=== PATIENT | female | born 1965 | race Caucasian/White ===

== ENCOUNTER 2017-02-01 10:25 | Emergency (ER) | payer BC, OTHER ==
[2017-02-01 10:44] VITALS: TEMP 98.2
[2017-02-01] MEDS ORDERED: RX INFO: IV CONTRAST WAS GIVEN 1 EACH MISC MISCELLANE PRN (11:09)
[2017-02-01 11:31] VITALS: RESP 18
[2017-02-01 11:41] LABS: Basophils % (A) 0 %; CH 29.4; CHCM 32.1; Eosinophils # (A) 0.2 k/uL (0-0.7); Eosinophils % (A) 3 %; HCT 38.5 % (34.0-46.0); HDW 2.37; HGB 12.5 gm/dL (11.4-16.0); Luc # (Auto) 0.11; Luc % (Auto) 2; Lymphocytes # (A) 2.3 k/uL (1.0-4.8); Lymphocytes % (A) 36 %; MCH 29.9 pg (25.0-35.0); MCHC 32.5 g/dL (31.0-37.0); MCV 91.9 fL (80.0-100.0); Mean Platelet Volume 7.4; Monocytes # (A) 0.3 k/uL (0-1.0); Monocytes % (A) 5 %; Neutrophils # (A) 3.4 k/uL (1.3-7.7); Neutrophils % (A) 53 %; RBC 4.19 m/uL (3.80-5.40); RDW 12.7 % (11.5-15.5); WBC 6.3 k/uL (3.8-10.6); WBC (Perox) 6.22
[2017-02-01 11:53] LABS: Anion Gap 11 mmol/L; Blood Urea Nitrogen 18 mg/dL (7-17); Calcium 9.4 mg/dL (8.4-10.2); Carbon Dioxide 26 mmol/L (22-30); Chloride 106 mmol/L (98-107); Glucose 93 mg/dL (74-99); Non-African American GFR(MDRD) >60 (>60 ml/min/1.73 sqM); Potassium 3.8 mmol/L (3.5-5.1); Sodium 143 mmol/L (137-145)
[2017-02-01 11:55] LABS: Partial Thromboplastin Time 22.5 sec (22.0-30.0)
--- NOTE | 2017-02-01 12:59 | CT ---
EXAMINATION TYPE: CT brain wo con DATE OF EXAM: 02/01/2017 12:53 PM COMPARISON: NONE HISTORY: Patient complains of new onset left side vision loss. CT DLP: 1066.[address] of the brain was performed. The ventricles, basal cisterns and sulci overlying the cerebral convexities demonstrate a normal appe arance. There is no evidence for intracranial hemorrhage or sulcal effacement. No mass effects are seen. Osseous calvarium is intact. If symptoms persist consider MRI as clinically warranted. IMPRESSION: 1. No acute intracranial process is seen at this time.
--- NOTE | 2017-02-01 13:01 | CT ---
EXAMINATION TYPE: CT orbits wo con DATE OF EXAM: 02/01/2017 12:55 PM COMPARISON: NONE HISTORY: Patient complains of new onset left side vision loss. CT DLP: 270.16 mGycm Automated exposure control for dose reduction was used. Unenhanced CT of the orbits was performed in the axial and coronal planes. FINDINGS: The globes are symmetric. No evidence for intra or extraconal mass. Optic nerves and extraocular musc ulature appear to be within normal limits. Both lenses appear to be symmetric and intact. No radiopaq ue foreign body identified. Mild ethmoid sinusitis. IMPRESSION: NO SIGNIFICANT ABNORMALITY APPRECIATED.
--- NOTE | 2017-02-01 13:03 | CT ---
EXAMINATION TYPE: CT angio head neck DATE OF EXAM: 02/01/2017 12:58 PM COMPARISON: NONE HISTORY: Patient complains of new onset left side vision loss. CT DLP: 376.9 mGycm CONTRAST: Performed with IV Contrast, patient injected with 65 mL of Omnipaque 350. Combination Contrast CTA cervical carotids and [place] of Javed CTA cervical carotids with 3-D recons truction Contrast CTA of the cervical carotids was performed 3-D reconstruction imaging obtained at a separate workstation. Right carotid system: Mild plaque is seen of the right common carotid artery. There is mild plaque a lso noted at the carotid bulb and proximal ICA. No significant diameter reduction. ECA is patent. Right vertebral artery appears unremarkable. Left carotid system: Mild plaque is seen of the left common carotid artery. There is mild plaque als o noted at the carotid bulb and proximal ICS. No significant diameter reduction. ECA is patent. Lef t vertebral artery appears unremarkable. IMPRESSION: 1. No significant diameter reduction to account for the patient's symptoms. CTA [place] of Javed with 3-D reconstruction Contrast CTA of the [place] of Javed was performed 3-D reconstruction imaging obtained at a separate workstation. Vertebrobasilar system as well as intracranial portions of the internal carotid arteries and their ma vanessa tributaries are patent. I do not see evidence for sizable aneurysm or vascular malformation. Pl ease note MRI provides greater sensitivity and specificity. Visualized brain appears grossly unremar kable. IMPRESSION: 1. No siginificant abnormality.
[2017-02-01] MEDS ORDERED: DEXAMETHASONE SOD PHOSPHATE 10 MG/ML 1 ML VIAL IV STA (13:28)
[2017-02-01] MEDS ORDERED: KETOROLAC 30 MG/ML 1 ML VIAL IVP STA (13:29)
[2017-02-01] MEDS ORDERED: METOCLOPRAMIDE 5 MG/ML 2 ML VIAL IVP STA (13:29)
--- NOTE | 2017-02-01 13:39 | ED ---
Eye Problem HPI - General Chief complaint: Eye Problems Stated complaint: VISUAL DISTURBANCE Time Seen by Provider: 02/01/17 11:00 Source: patient Mode of arrival: ambulatory Limitations: no limitations - History of Present Illness Initial comments: This 51-year-old white female presents complaining of some loss of vision from her left eye. It occurred at 10:10 AM. It was sudden in onset. She states that she could not see well. It look like a cracked windshield with left paraspinal outlining at and significant blurry and occasional double vision. She states that it was worse laterally. It is improved by the time she gets to the emergency department but still present. She denies any headache upon initial examination. On recheck she does complain of a slight headache. She denies any history of migraine headaches or any significant headache history. She denies any neck pain. She denies any possible chemical exposure to her eyes or head trauma. She denies any other neurologic complaints or modifying factors. There is no previous similar incidents. She denies any ophthalmologic problems previously. - Related Data Home Medications Medication Instructions Recorded Confirmed Minivelle 0.05 mg TRANSDERM SUWE 10/26/16 02/01/17 Naproxen Sodium [Aleve] 440 mg PO DAILY PRN 02/01/17 02/01/17 Allergies Allergy/AdvReac Type Severity Reaction Status Date / Time No Known Allergies Allergy Verified 02/01/17 11:29 Review of Systems ROS Statement: Those systems with pertinent positive or pertinent negative responses have been documented in the HPI. ROS Other: All systems not noted in ROS Statement are negative. Past Medical History Past Medical History: No Reported History, Musculoskeletal Disorder History of Any Multi-Drug Resistant Organisms: None Reported Past Surgical History: Back Surgery, Hysterectomy Additional Past Surgical History / Comment(s): Colonoscopy Past Anesthesia/Blood Transfusion Reactions: No Reported Reaction, Family History of Problems w/ Anesthesia Additional Past Anesthesia/Blood Transfusion Reaction / Comment(s): Mother N/V Past Psychological History: No Psychological Hx Reported Smoking Status: Never smoker Past Alcohol Use History: Occasional Past Drug Use History: None Reported - Past Family History Brother(s) Family Medical History: Cancer General Exam - General Exam Comments Initial Comments: GENERAL: The patient is well nourished and well hydrated. VITAL SIGNS: Heart rate, blood pressure, respiratory rate reviewed as recorded in nurse's notes. EYES: Pupils are round and reactive. Extraocular movements are intact. No conjunctival / lid redness or swelling. The patient cannot decipher fingers well upon examination. Funduscopic exam is negative as per my review but is somewhat limited. There is no periorbital swelling or evidence of trauma. ENT: No external evidence of injury, swelling, or ecchymosis. Airway is patent. Throat is clear. NECK: Nontender. No swelling or evidence of injury. No subcutaneous emphysema. Trachea is midline. No thyroid mass. HEART: Regular rate and rhythm. Good peripheral pulses. LUNGS/CHEST: Breath sounds clear and equal bilaterally. No rales, rhonchi, or wheezes. No ecchymosis, subcutaneous emphysema, or tenderness. ABDOMEN: Abdomen soft without tenderness. No palpable masses or organomegaly. No peritoneal signs. No abdominal wall swelling or ecchymosis. EXTREMITIES: No extremity tenderness. Normal muscle tone and function. No thoracolumbar tenderness. NEUROLOGIC: Sensation is grossly intact. Cranial nerve exam reveals face is symmetrical, tongue is midline, speech is clear. SKIN: No abrasions or ecchymosis is noted. No induration or masses noted. PSYCHIATRIC: Alert and oriented. Appropriate behavior and judgment. Limitations: no limitations Course Vital Signs 02/01/17 02/01/17 10:41 11:30 Temperature 98.2 F Pulse Rate 65 80 Respiratory 17 18 Rate Blood Pressure 157/94 157/87 O2 Sat by Pulse 98 99 Oximetry Medical Decision Making - Medical Decision Making The patient was seen and examined. All diagnostics were reviewed. An IV is started. The patient's labs are all essentially within normal limits. She had a computed tomography scan of the orbits, brain, and CT angiogram of the head and neck and this does not show any acute significant abnormalities. The patient, upon recheck, is now having a headache. Reglan, Toradol, Decadron are ordered. It is felt that this potentially could be related to an atypical migraine cephalgia. The case is discussed with Dr. Diggs and he would like us to send her over to his office from the emergency department so he can further evaluate her eyes. The patient is agreeable. Her blood pressure is slightly elevated and she is counseled regarding this. She leaves in no distress. She states that all of her ophthalmological symptoms have been resolved on recheck. - Lab Data Result diagrams: 02/01/17 11:21 03/27/17 11:21 Lab Results 02/01/17 02/01/17 02/01/17 Range/Units 11:21 11:21 11:21 WBC 6.3 (3.8-10.6) k/uL RBC 4.19 (3.80-5.40) m/uL Hgb 12.5 (11.4-16.0) gm/dL Hct 38.5 (34.0-46.0) % MCV 91.9 (80.0-100.0) fL MCH 29.9 (25.0-35.0) pg MCHC 32.5 (31.0-37.0) g/dL RDW 12.7 (11.5-15.5) % Plt Count 254 (150-450) k/uL Neutrophils % 53 % Lymphocytes % 36 % Monocytes % 5 % Eosinophils % 3 % Basophils % 0 % Neutrophils # 3.4 (1.3-7.7) k/uL Lymphocytes # 2.3 (1.0-4.8) k/uL Monocytes # 0.3 (0-1.0) k/uL Eosinophils # 0.2 (0-0.7) k/uL Basophils # 0.0 (0-0.2) k/uL PT 10.0 (9.0-12.0) sec INR 1.0 (<1.1) APTT 22.5 (22.0-30.0) sec Sodium 143 (137-145) mmol/L Potassium 3.8 (3.5-5.1) mmol/L Chloride 106 (98-107) mmol/L Carbon Dioxide 26 (22-30) mmol/L Anion Gap 11 mmol/L BUN 18 H (7-17) mg/dL Creatinine 0.58 (0.52-1.04) mg/dL Est GFR (MDRD) Af Amer >60 (>60 ml/min/1.73 sqM) Est GFR (MDRD) Non-Af >60 (>60 ml/min/1.73 sqM) Glucose 93 (74-99) mg/dL Calcium 9.4 (8.4-10.2) mg/dL Disposition Clinical Impression: Atypical migraine, Visual loss, Hypertension Disposition: HOME SELF-CARE Condition: Good Instructions: Migraine Headache (ED), Hypertension (ED) Additional Instructions: Please go directly to Dr. Diggs's office from the emergency department. It is felt as though her symptoms may be related to an atypical migraine headache. Referrals: Nella Castaneda DO [Primary Care Provider] - 1-2 days Kamala Diggs MD [STAFF PHYSICIAN] - 02/01/17 Time of Disposition: 13:38
[2017-02-01 14:06] VITALS: BP 123/73; PULSE 82
== END 2017-02-01 14:06 | disposition home or self-care (01) ==
LOC: EC 10:25
DX: H54.7 Unspecified visual loss (principal); G43.909 Migraine, unspecified, not intractable, without status migrainosus; I10 Essential (primary) hypertension; Z79.899 Other long term (current) drug therapy
CPT/HCPCS: 99284; 96374; 96375 ×2; 36415; 80048; 85025; 85610; 85730; 70496; 70450; 70480; 70498; J1100; J2765; Q9967; J1885

== ENCOUNTER 2018-03-11 16:05 | Emergency (ER) | payer BC, OTHER ==
[2018-03-11 16:20] VITALS: BP 125/95; PULSE 105; RESP 18; TEMP 98
--- NOTE | 2018-03-11 16:57 | XR ---
EXAMINATION TYPE: XR knee complete RT DATE OF EXAM: 03/11/2018 CLINICAL HISTORY: Posterior and lateral pain after hyperextension injury earlier today. TECHNIQUE: Three views of the right knee are obtained. COMPARISON: None. FINDINGS: There is no acute fracture/dislocation evident in right knee. Meniscal calcification is se en laterally. There is mild to moderate medial and lateral tibiofemoral compartment spurring. There a re small ossific fragments medially and laterally from the distal femur. There are fixating nan l ateral distal femur and medial proximal tibia through healed fractures. Patellofemoral space is maint ained. The overlying soft tissue appears unremarkable. IMPRESSION: There is no acute fracture or dislocation in the right knee.
--- NOTE | 2018-03-11 17:47 | ED ---
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 Patient states that she was using a firehose when she stepped into a wet surface in her foot slipped. She states she felt like she hyperextended her knee. Patient states she had surgery on that knee about 25 years ago due to ligament injury. Patient denies any pain in her calf, ankle, or foot. Patient denies any pain in the femur or hip. No pain in the back. Patient denies falling or hitting her head. Patient received 2 mg of morphine by ambulance. Patient denies any other complaints at this time including shortness of breath, chest pain, abdominal pain, nausea or vomiting, headache, visual changes. - Related Data Home Medications Medication Instructions Recorded Confirmed Minivelle 0.05 mg TRANSDERM SUWE 10/26/16 03/11/18 Naproxen Sodium [Aleve] 440 mg PO DAILY PRN 02/01/17 03/11/18 Ergocalciferol (Vitamin D2) 50,000 unit PO WE 03/11/18 03/11/18 [Vitamin D2] Previous Rx's Medication Instructions Recorded Acetaminophen-Codeine 300-30mg 1 tab PO Q8H PRN #9 tablet 03/11/18 [Tylenol #3] Allergies Allergy/AdvReac Type Severity Reaction Status Date / Time No Known Allergies Allergy Verified 03/11/18 16:52 Review of Systems ROS Statement: Those systems with pertinent positive or pertinent negative responses have been documented in the HPI. ROS Other: All systems not noted in ROS Statement are negative. Past Medical History Past Medical History: No Reported History History of Any Multi-Drug Resistant Organisms: None Reported Past Surgical History: Back Surgery, Hysterectomy, Orthopedic Surgery Additional Past Surgical History / Comment(s): Colonoscopy, right knee Past Anesthesia/Blood Transfusion Reactions: No Reported Reaction, Family History of Problems w/ Anesthesia Additional Past Anesthesia/Blood Transfusion Reaction / Comment(s): Mother N/V Past Psychological History: No Psychological Hx Reported Smoking Status: Never smoker Past Alcohol Use History: Occasional Past Drug Use History: None Reported - Past Family History Brother(s) Family Medical History: Cancer General Exam Limitations: no limitations General appearance: alert, in no apparent distress Head exam: Present: atraumatic, normocephalic, normal inspection Eye exam: Present: normal appearance, PERRL, EOMI. Absent: scleral icterus, conjunctival injection, periorbital swelling ENT exam: Present: normal external ear exam Neck exam: Present: normal inspection, full ROM. Absent: tenderness, meningismus, lymphadenopathy Respiratory exam: Present: normal lung sounds bilaterally. Absent: respiratory distress, wheezes, rales, rhonchi, stridor Cardiovascular Exam: Present: regular rate, normal rhythm, normal heart sounds. Absent: systolic murmur, diastolic murmur, rubs, gallop, clicks Extremities exam: Present: tenderness (Tenderness to the posterior knee. Note tenderness in the femur, tib-fib, ankle, or foot.), normal capillary refill ( Refill less than 2 seconds in the right lower extremity. Pedal pulse 2+ in the right lower extremity.), other (Sensation intact in the right lower extremity. Patient has sensation of all digits in the right lower extremities.). Absent: full ROM (Patient refuses to try to bend the right knee. Patient can move the ankle, foot, and all digits of the toes.), joint swelling (No swelling or ecchymosis noted on exam), calf tenderness (tenderness. Negative Homans sign.) Course Vital Signs 03/11/18 16:14 Temperature 98 F Pulse Rate 105 H Respiratory 18 Rate Blood Pressure 125/95 O2 Sat by Pulse 97 Oximetry Medical Decision Making - Medical Decision Making 52-year-old female presents to the emergency department for a chief complaint of right knee pain 1 hour. Patient states her foot slipped on unstable ground and she felt that her knee hyperextended. Patient has a history of surgery on the knee 25 years ago for ligament injury. On exam, no swelling or ecchymosis noted. Patient has tenderness posterior to the knee. Patient refuses to bend the knee. No calf tenderness, negative Homans sign. No tenderness elsewhere in the leg. Patient has full range motion in the right foot and toes. Neurovascular intact in the right lower extremity. Patient likely has a ligament sprain. She will be given a knee immobilizer as well as crutches. She will follow up with orthopedics in one to 2 days. Orthopedics will determine her work status. She will return to the emergency Department if she has any worsening symptoms. Patient agrees with this plan. Disposition Clinical Impression: Knee injury Disposition: HOME SELF-CARE Condition: Good Instructions: Knee Pain (ED) Additional Instructions: Please take Motrin for pain. If pain is severe please take Tylenol 3. Follow up with orthopedics in one to 2 days. You may use crutches. Remember to rest, ice, and elevate the affected knee. Return to the emergency department if you have any worsening symptoms. Prescriptions: Acetaminophen-Codeine 300-30mg [Tylenol #3] 1 tab PO Q8H PRN #9 tablet PRN Reason: Pain Is patient prescribed a controlled substance at d/c from ED?: No Referrals: Nella Castaneda DO [Primary Care Provider] - 1-2 days Brian Duran MD [STAFF PHYSICIAN] - 1-2 days Time of Disposition: 17:39
[2018-03-11] MEDS ORDERED: KETOROLAC 30 MG/ML 1 ML VIAL IVP STA (17:54)
== END 2018-03-11 18:30 | disposition home or self-care (01) ==
LOC: EC 16:05
DX: S89.91XA Unspecified injury of right lower leg, initial encounter (principal); Z79.899 Other long term (current) drug therapy; Z98.890 Other specified postprocedural states; Z53.20 Procedure and treatment not carried out because of patient's decision for unspecified reasons; W01.0XXA Fall on same level from slipping, tripping and stumbling without subsequent striking against object, initial encounter; Y93.89 Activity, other specified; Y92.89 Other specified places as the place of occurrence of the external cause; Y99.0 Civilian activity done for income or pay
CPT/HCPCS: 73562; 99284; L1830; J1885

== ENCOUNTER → 2019-11-28 | Outpatient (CLI) | payer BC ==
--- NOTE | 2019-11-30 13:39 | MM ---
Reason for exam: screening (asymptomatic). Last mammogram was performed 1 year and 2 months ago. History: Patient is postmenopausal and is nulliparous. Took hormonal contraceptives for 23 years beginning at age 19. Took estrogen for 4 years 6 months. Took progesterone for 4 years 6 months. Physical Findings: A clinical breast exam by your physician is recommended on an annual basis and results should be correlated with mammographic findings. MG 3D Screening Mammo W/Cad Bilateral CC and MLO view(s) were taken. Prior study comparison: October 07, 2018, mammogram, performed at [facility]. August 15, 2017, mammogram, performed at [facility]. January 22, 2016, bilateral MG 3d screening mammo w/cad. October 28, 2011, bilateral digital screening mammo w/CAD. The breast tissue is heterogeneously dense. This may lower the sensitivity of mammography. There is no discrete abnormality. No significant changes when compared with prior studies. ASSESSMENT: Negative, BI-RAD 1 RECOMMENDATION: Routine screening mammogram of both breasts in 1 year.
== END | disposition home or self-care (01) ==
LOC: RADMAMWWP 07:46
PROVIDERS: ATTEND Family Medicine
DX: Z12.31 Encounter for screening mammogram for malignant neoplasm of breast (principal)
CPT/HCPCS: 77063; 77067

== ENCOUNTER → 2021-07-02 | Outpatient (CLI) | payer BC ==
--- NOTE | 2021-07-02 13:07 | MR ---
EXAMINATION TYPE: MR shoulder LT wo con DATE OF EXAM: 07/02/2021 11:50 AM COMPARISON: NONE HISTORY: Left shoulder pain TECHNIQUE: Multiplanar multispin echo imaging of the left shoulder was performed. FINDINGS: Rotator cuff : There is thickening and heterogeneity of the supraspinatus tendon with the intrasubsta nce tears noted. No evidence for full-thickness tear at this time. Chronic tendinopathy noted. Remain ing constituents of the rotator cuff are intact. Bursa: No bursal effusion or thickening is seen. Musculature: There is no muscular tear, contusion, or atrophy. Acromioclavicular joint : Subacromial spurring results in impingement. Moderate AC joint arthropathy. Osseous structures : There are no fractures or regions of abnormal bone marrow signal intensity. Long biceps tendon : The biceps tendon is normally situated within the bicipital groove. No complete or partial biceps tendon tear is present. Glenohumeral Joint fluid : There is no glenohumeral joint effusion. Cartilage and Bone : No focal hyaline cartilage defects are noted. No Hill-Sachs, reverse Hill-Sachs, or bony Bankart lesions are seen. Labrum : There are no SLAP or soft tissue Bankart lesions. No paralabral cysts are seen. OTHER FINDINGS : none IMPRESSION: 1. Chronic tendinopathy supraspinatus tendon with intrasubstance tears noted there is no evidence for full-thickness tear or partial tear. Subacromial impingement secondary to spurring.
== END | disposition home or self-care (01) ==
LOC: RADMRIMAIN 11:06
PROVIDERS: ATTEND Orthopaedic Surgery
DX: M75.112 Incomplete rotator cuff tear or rupture of left shoulder, not specified as traumatic (principal)

== ENCOUNTER → 2021-09-03 | Outpatient (CLI) | payer BC ==
[2021-09-03 14:27] LABS: Basophils % (A) 1 %; Eosinophils # (A) 0.1 k/uL (0-0.7); Eosinophils % (A) 2 %; HCT 41.1 % (34.0-46.0); HGB 12.9 gm/dL (11.4-16.0); Lymphocytes # (A) 2.4 k/uL (1.0-4.8); Lymphocytes % (A) 40 %; MCH 30.2 pg (25.0-35.0); MCHC 31.4 g/dL (31.0-37.0); MCV 96.2 fL (80.0-100.0); Mean Platelet Volume 7.8; Monocytes # (A) 0.3 k/uL (0-1.0); Monocytes % (A) 5 %; Neutrophils # (A) 3.2 k/uL (1.3-7.7); Neutrophils % (A) 51 %; Platelet Count 265 k/uL (150-450); RBC 4.27 m/uL (3.80-5.40); RDW 12.1 % (11.5-15.5); WBC 6.1 k/uL (3.8-10.6)
[2021-09-03 14:38] LABS: Potassium 4.8 mmol/L (3.5-5.1)
== END | disposition home or self-care (01) ==
LOC: LABPAT 12:53
PROVIDERS: ATTEND Orthopaedic Surgery
DX: Z01.818 Encounter for other preprocedural examination (principal); M75.42 Impingement syndrome of left shoulder
CPT/HCPCS: 36415; 80051; 85025; 93005

== ENCOUNTER 2021-09-18 07:39 | Day surgery (SDC) | payer BC ==
[2021-09-16 18:01] VITALS: BMI 25.8
--- NOTE | 2021-09-17 21:16 | HP ---
HISTORY AND PHYSICAL DATE OF SURGERY: 09/18/2021 Arlen Snowden is a 56-year-old patient seen with progressive left shoulder pain. We discussed options for treatment. She elected to proceed with left shoulder arthroscopy. Consent was obtained. PAST MEDICAL HISTORY: Noncontributory. PAST SURGICAL HISTORY: Right knee arthroscopy, spine surgery. DAILY MEDICATIONS: None. ALLERGIES: NONE. SOCIAL HISTORY: She denies tobacco use. PHYSICAL EVALUATION OF THE LEFT SHOULDER: Flexion is 150 degrees. Abduction is 130 degrees. External rotation is 40 degrees with some weakness. Tenderness along the anterolateral acromion and rotator cuff insertion site. Impingement is positive at 90 degrees. Cross-body adduction sign is positive. Drop-arm sign is positive. Distal neurovascular exam is intact. Radiographs of the left shoulder: Type 2 acromion, evidence for acromioclavicular joint osteoarthritis. MRI of left shoulder: Impingement, acromioclavicular joint osteoarthritis and partial rotator cuff tendon tear. IMPRESSION: 1. Left shoulder impingement with partial rotator cuff tear. 2. Left shoulder acromioclavicular joint osteoarthritis. PLAN: Left shoulder arthroscopy with subacromial decompression, possible arthroscopic rotator cuff repair, Marii procedure and debridement. MMODL / IJN: [id number] /
[~2021-09-18 07:39] MED LIST: HYDROmorphone 0.5 MG/0.5 ML SYRINGE IVP PRN; LACTATED RINGERS 1,000 ML IV SCH; LIDOCAINE 1% (10MG/ML) FOR IV START INTRADERMA PRN; ONDANSETRON 4 MG/2 ML VIAL IVP ONE
[2021-09-18] MEDS ORDERED: DEXAMETHASONE SOD PHOSPHATE 4 MG/ML 1 ML VIAL IVP ONE (08:58)
[2021-09-18] MEDS ORDERED: fentaNYL (PF) 50 MCG/ML 2 ML AMP IVP ONE (08:58)
[2021-09-18] MEDS ORDERED: MIDAZOLAM 2 MG/2 ML VIAL IVP ONE (08:58)
[2021-09-18] MEDS ORDERED: LIDOCAINE 1% INJ 10MG/ML (20 ML MDV) ONE (09:15)
[2021-09-18] MEDS ORDERED: PROPOFOL 10 MG/ML 20 ML VIAL IV ONE (09:15)
[2021-09-18] MEDS ORDERED: ROPIVACAINE 5 MG/ML 30 ML VIAL ONE (09:15)
[2021-09-18] MEDS ORDERED: fentaNYL (PF) 50 MCG/ML 2 ML AMP ONE (09:15)
[2021-09-18] MEDS ORDERED: SUCCINYLCHOLINE CHLORIDE 100 MG/5 ML SYR IV ONE (09:15)
--- NOTE | 2021-09-18 10:38 | P.OP ---
Date of Procedure: 09/18/21 Preoperative Diagnosis: Left shoulder impingement Postoperative Diagnosis: 1. Left shoulder rotator cuff tear 2. Left shoulder impingement 3. Left shoulder acromioclavicular joint osteoarthritis 4. Left shoulder partial long head biceps tendon tear Procedure(s) Performed: 1. Left shoulder arthroscopic rotator cuff repair 2. Left shoulder arthroscopic subacromial decompression 3. Left shoulder arthroscopic Marii procedure 4. Left shoulder arthroscopic biceps tenotomy Implants: 15.5 Arthrex swivel lock anchor Anesthesia: GETA, regional (Interscalene block) Surgeon: Hubert Mirza High Raw Sugar Boiler #1: Mason Menendez Estimated Blood Loss (ml): 10 Pathology: none sent Condition: stable Disposition: PACU Indications for Procedure: 56-year-old patient seen with progressive left shoulder pain. After treatment options were discussed, she elected to proceed with arthroscopy. Operative Findings: See description of procedure Description of Procedure: Patient underwent an interscalene block by department of anesthesia. The patient was then taken to the operative suite. The patient underwent a general anesthetic by the department of anesthesia. The patient was placed into a lateral position and secured. There was appropriate padding of the bony prominence. Left shoulder was then prepped and draped in normal sterile orthopedic fashion. We placed the extremity in 10 pounds of longitudinal traction. A posterior incision was now made for a posterior working portal site. The trocar and cannula were inserted into the glenohumeral joint. Arthroscopy w as initiated. Spinal needle was now inserted anteriorly, to ascertain the anterior working portal site. An incision was now made in that area, a trocar was inserted followed by a probe. There was no evidence for any significant chondromalacia. The labrum was probed and found to be stable. There was some hyperemia and partial tearing long head biceps tendon. I performed an arthroscopic biceps tenotomy. I again probed the residual labrum and it was stable. Instruments were now removed from glenohumeral joint. Utilizing the posterior working portal site, the trocar and cannula were inserte d into the subacromial space. Arthroscopy initiated. I made an incision 2 fingerbreadths lateral to the acromion. I introduced my trocar followed by my ArthroCare ablator. I now began ablating thick subacromial bursal tissue, which exposed the undersurface of the anterior acromion. There was diminished subacromial space. There was a very prominent anterior acromion. A motorized bur was introduced and a subacromial decompression was performed. I also excised some osteophytes off the inferior aspect of the distal clavicle. The AC joint was visualized and noted to be fairly arthritic. The motorized bur was introduced in the anterior portal site and a Marii procedure was performed without difficulty, decompressing the AC joint nicely. I turned my attention to the rotator cuff. There was an area of significant partial tearing along the distal supraspinatus. Upon probing the area was a full-thickness perforation present. I debrided the margins getting down to stable tendon tissue. The defect measured approximately 1 cm. I abraded the footprint with a motorized bur. With the assistance of Elias MARTINS I passed 2 everted mattress sutures through good bites of rotator cuff tendon. I now punched to holes in the footprint for insertion of an anchor. All 4 limbs of suture were passed through the eyelet of a 5.5 Arthrex swivel lock anchor. I placed the eyelet into the pre-punched hole. I held it in place while Elias MARTINS tension the sutures and fully the anchor with good fixation noted. All residual suture limbs were now clipped. We had good compression of the tendon along the entire footprint. Instruments now removed from the portal sites. All portal sites were approximated with nylon suture. Sterile dressings were applied followed by a shoulder sling. Mason MARTINS assisted in this case. The patient was awakened, transferred to a bed, and taken to recovery in stable condition.
[2021-09-18 10:41] VITALS: TEMP 97
--- NOTE | 2021-09-18 10:43 | P.ANPRN ---
Procedure Note - Anesthesia - Nerve Block Performed Left Interscalene Single Time Out Performed: Yes ([id number]) Date of Procedure: 09/18/21 Procedure Start Time: :25 Procedure Stop Time: :30 Location of Patient: PreOp Indication: Acute Post-Operative Pain, Requested by Surgeon Specifically requested for management of pain by DrRonnie: Hubert Mirza Sedation Type: Sedate with meaningful contact maintained Preparation: Sterile Prep Position: Supine Catheter: None Needle Types: Pajunk Needle Gauge: 21 Ultrasound used to visualize needle placement: Yes Ultrasound used to observe medication spread: Yes Injectate: 0.5% Ropivacaine (see comment for volume) (30cc) Blood Aspirated: No Pain Paresthesia on Injection Noted: No Resistance on Injection: Normal Image Stored and Saved: Yes Events: Uneventful and Well Tolerated
[2021-09-18 12:09] VITALS: BP 141/86; PULSE 76; RESP 18
== END 2021-09-18 12:19 | disposition home or self-care (01) ==
LOC: OR 07:39
PROVIDERS: ATTEND Orthopaedic Surgery
DX: M75.102 Unspecified rotator cuff tear or rupture of left shoulder, not specified as traumatic (principal); M25.811 Other specified joint disorders, right shoulder; M19.012 Primary osteoarthritis, left shoulder; S46.112A Strain of muscle, fascia and tendon of long head of biceps, left arm, initial encounter; X58.XXXA Exposure to other specified factors, initial encounter; Z98.890 Other specified postprocedural states
CPT/HCPCS: 64415; 76942; 29826; 29827; 29824; C1713; J2250; J1100; J0690; J2405; J2001; J3010; J2795; J0330; J2704

== ENCOUNTER → 2022-04-22 | Outpatient (CLI) | payer BC ==
[2022-04-22 18:09] LABS: HCT 41.5 % (37.2-46.3); HGB 12.7 g/dL (12.0-15.0); MCH 29.5 pg (27.0-32.0); MCHC 30.6 g/dL (32.0-37.0); MCV 96.5 fL (80.0-97.0); Mean Platelet Volume 11.2 fL (9.5-12.2); NRBC Per 100 WBC 0 /100 WBCS (0.0-0.0); Platelet Count 313 X 10*3/uL (140-440); RDW 12.4 % (11.5-14.5); WBC 6.56 X 10*3/uL (4.50-10.00)
[2022-04-22 18:15] LABS: Chol/HDL Ratio 2.75 Ratio; LDL Cholesterol,Calculated 118.1 mg/dL (0.0-131.0); VLDL Calculation 18.84 mg/dL (5.00-40.00)
[2022-04-22 18:32] LABS: ALT 21 U/L (8-44); AST 16 U/L (13-35); African American GFR (CKD) 120.8 (60.0-200.0); Albumin 4.5 g/dL (3.8-4.9); Albumin/Globulin Ratio 1.98 (1.60-3.17); Alkaline Phosphatase 80 U/L (41-126); BUN/Creat Ratio 26.96 Ratio (12.00-20.00); Blood Urea Nitrogen 15.1 mg/dL (9.0-27.0); Calcium 9.8 mg/dL (8.7-10.3); Carbon Dioxide 26.6 mmol/L (20.0-27.5); Chloride 104 mmol/L (96-109); Estradiol <5.0 pg/mL; Globulin 2.3 g/dL (1.6-3.3); Glucose 89 mg/dL (70-110); Non-African American GFR(CKD) 104.2 (60.0-200.0); Potassium 4.4 mmol/L (3.5-5.5); Sodium 142 mmol/L (135-145); Total Bilirubin <0.15 mg/dL (0.30-1.20); Total Protein 6.8 g/dL (6.2-8.2)
== END | disposition home or self-care (01) ==
LOC: LABWHC1 10:41
PROVIDERS: ATTEND Family Medicine
DX: E78.5 Hyperlipidemia, unspecified (principal); Z79.890 Hormone replacement therapy
CPT/HCPCS: 36415; 80053; 80061; 82670; 84144; 84443; 85027

== ENCOUNTER → 2022-07-17 | Outpatient (CLI) | payer BC ==
--- NOTE | 2022-07-17 19:55 | MR ---
EXAMINATION TYPE: MR lumbar spine wo/w con DATE OF EXAM: 07/17/2022 9:38 AM COMPARISON: None CLINICAL INDICATION:Female, 57 years old with history of M54.50 LOW BACK PAIN, UNSPECIFIED; M51.36; TECHNIQUE: Multi planar, multi sequence imaging was performed utilizing: T1-weighted, T2-weighted, a nd turbo inversion recovery imaging of the lumbar spine. IV Contrast: 7.5 cc Gadavist FINDINGS: Alignment: The lumbar vertebral bodies have preserved heights and alignment. Cord: The conus medullaris and the distal spinal cord appear unremarkable with regards to their signa l intensity and morphology. Bones/Discs: Postsurgical changes throughout the visualized spine including L3-S1. Susceptibility art ifact slightly limits evaluation at these levels. Bone signal is grossly within normal limits.. Mult ilevel degenerative disc disease is noted and most pronounced at the L4-L5 with disc space narrowing. Intervertebral disc signal is maintained. L1-L2: No significant disc pathology. Spinal canal is patent. The neural foramen are patent. L2-L3: No significant disc pathology. Spinal canal is patent. The neural foramen are patent. L3-L4: No significant disc pathology. Spinal canal is patent. Facet joint arthropathy with mild to mo derate right and mild left bilateral neural foraminal stenosis. L4-L5: No significant disc pathology. Spinal canal is patent. Facet joint arthropathy with mild bilat eral neural foraminal stenosis. L5-S1: No significant disc pathology. Spinal canal is patent. Facet joint arthropathy with mild bilat eral neural foraminal stenosis. Other findings: Posterior to the spine and surgical bed at level of L4 predominantly is a 4.1 x 1.0 c m suspected fluid collection in the surgical bed. Evaluation is limited given susceptibility artifact without definitive postcontrast enhancement. Multiple layering gallstones are seen in the gallbladde r lumen. IMPRESSION: 1. No definitive evidence of disc herniation or significant spinal canal stenosis. 2. Suspected surgical bed fluid collection which may represent pseudomeningocele. Evaluation slightl y limited due to susceptibility artifact. Consider evaluation with ultrasound. No abnormal postcontr ast enhancement definitively visualized within the limitations of this exam. 3. Multilevel disc degeneration with associated osteoarthritic changes. No evidence of bony edema on STIR imaging. 4. Cholelithiasis.
== END | disposition home or self-care (01) ==
LOC: RADMRIMAIN 08:25
PROVIDERS: ATTEND Physician Assistant
DX: M51.36 Other intervertebral disc degeneration, lumbar region (principal); K80.20 Calculus of gallbladder without cholecystitis without obstruction
CPT/HCPCS: 72158; A9585

== ENCOUNTER → 2023-04-26 | Outpatient (CLI) | payer MEDICARE ==
--- NOTE | 2023-04-26 07:55 | MM ---
Reason for Exam: Screening (asymptomatic). Last mammogram was performed 3 year(s) and 5 month(s) ago. Patient History: Menarche at age 15. Patient has no children. Left ovary removed at age 42. Right ovary removed at age 42. Hysterectomy at age 42. Postmenopausal. Estrogen for 13 years, 6 months. Progesterone for 13 years, 6 months. Hormonal Contraceptives for 23 years from age 19 until age 42. Risk Values: Marisel 5 year model risk: 1.3%. NCI Lifetime model risk: 8.0%. Prior Study Comparison: 08/15/2017 Screening Mammogram, [facility]. 10/07/2018 Screening Mammogram, [facility] [place]. 11/28/2019 Bilateral Screening Mammogram, [facility]. Tissue Density: The breast tissue is heterogeneously dense. This may lower the sensitivity of mammography. Findings: Analyzed By CAD. There is no suspicious group of microcalcifications or new suspicious mass in either breast. Overall Assessment: Negative, BI-RAD 1 Management: Screening Mammogram of both breasts in [address] [facility] will attempt to contact patient to return for supplemental views and ultrasound if indicated. Patient should continue monthly self-breast exams. A clinical breast exam by your physician is recommended on an annual basis. This exam should not preclude additional follow-up of suspicious palpable abnormalities. Note on Marisel scores and lifetime risk: 1. A Marisel score greater than 3% is considered moderate risk. If this is the case, consider specialist referral to assess eligibility for a risk reducing agent. 2. If overall lifetime risk for the development of breast cancer is 20% or higher, the patient may qualify for future screening with alternating mammogram and breast MRI. Electronically signed and approved by: Stephan Mckeon DO
== END | disposition home or self-care (01) ==
LOC: RADMAMWWP 06:44
PROVIDERS: ATTEND Family Medicine
DX: Z12.31 Encounter for screening mammogram for malignant neoplasm of breast (principal); Z78.0 Asymptomatic menopausal state
CPT/HCPCS: 77063; 77067

== ENCOUNTER → 2024-09-20 | Outpatient (CLI) | payer MEDICARE ==
--- NOTE | 2024-09-24 15:20 | MM ---
Reason for Exam: Screening (asymptomatic). Last mammogram was performed 1 year(s) and 5 month(s) ago. Patient History: Menarche at age 15. Patient has no children. Left ovary removed at age 42. Right ovary removed at age 42. Hysterectomy at age 42. Postmenopausal. Estrogen for 13 years, 6 months. Progesterone for 13 years, 6 months. Hormonal Contraceptives for 23 years from age 19 until age 42. Risk Values: Marisel 5 year model risk: 1.4%. NCI Lifetime model risk: 7.8%. Prior Study Comparison: 10/07/2018 Screening Mammogram, [facility]. 11/28/2019 Bilateral Screening Mammogram, [facility]. 04/26/2023 Bilateral MG 3D screening mammo w/cad, [facility]. Tissue Density: The breasts are heterogeneously dense, which may obscure small masses. Findings: Analyzed By CAD. The pattern is symmetrical. No significant interval change No suspicious groups of microcalcifications, spiculated or lobular masses, architectural distortion or other secondary signs of malignancy are mammographically apparent. Overall Assessment: Benign, BI-RAD 2 Management: Screening Mammogram of both breasts in 1 year. A negative mammogram report should not preclude additional follow up of suspicious palpable abnormalities. Patient should continue monthly self breast exam. A clinical breast exam by your physician is recommended on an annual basis and results should be correlated with mammographic findings. Note on Marisel scores and lifetime risk: 1. A Marisel score greater than 3% is considered moderate risk. If this is the case, consider specialist referral to assess eligibility for a risk reducing agent. 2. If overall lifetime risk for the development of breast cancer is 20% or higher, the patient may qualify for future screening with alternating mammogram and breast MRI. [facility], , 09/24/2024 3:17 PM. Electronically signed and approved by: Demetri Garnica D.O. Radiologis
== END | disposition home or self-care (01) ==
LOC: RADMAMWWP 08:43
PROVIDERS: ATTEND Family Medicine
DX: Z12.31 Encounter for screening mammogram for malignant neoplasm of breast (principal); R92.333 Mammographic heterogeneous density, bilateral breasts; Z78.0 Asymptomatic menopausal state
CPT/HCPCS: 77063; 77067